=== PATIENT | male | born 1960 | race Caucasian/White ===

== ENCOUNTER 2016-10-18 07:45 | Emergency (ER) | payer OTHER ==
[~2016-10-18] VITALS: Ht 175.3 cm; Wt 93.5 kg
[~2016-10-18 07:45] MED LIST: IBUP-1050 PO; TRAM-10 PO
[2016-10-18 07:47] VITALS: TEMP 37; Ht 175.3 cm; Wt 93.5 kg
[2016-10-18] MEDS ORDERED: ACETAMINOPHEN 500 MG TAB PO STA (07:56)
[2016-10-18] MEDS ORDERED: PROPARACAINE HCL 0.5% OP SOLN 15 ML BTL OP STA (07:56)
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
--- NOTE | 2016-10-18 09:31 | DIAGNOSTIC IMAGING REPORT ---
ORBIT CT HISTORY: Pt swollen Rt eye TECHNIQUE: Multiaxial CT images of the orbits were performed reformatted in the coronal plane without contrast. COMPARISON STUDY: Head CT 01/07/2006. FINDINGS: Old, healed nasal bone fractures. No acute fractures identified. Multiple dental caries and periapical lucencies within the residual teeth. A 1.5 cm retention cyst within the left maxillary sinus. Mild mucosal thickening within the paranasal sinuses with partial opacification of the ethmoid air cells. The mastoid air cells are clear. The orbital floors and lamina papyracea are intact. The globes and retrobulbar fat are intact. The extraocular muscles and optic nerves are normal in caliber. Minimal right orbit preseptal soft tissue thickening. No radiopaque foreign bodies. Soft tissue prominence at the central adenoids remains stable since 2005 and is likely benign. IMPRESSION: 1 Minimal right orbit preseptal soft tissue thickening. 2. Mild chronic sinus disease as described above. 3. Extensive periodontal disease Electronically signed by: Guero Parr M.D. 10/18/2016 9:29 AM Dictated Date/Time: 10/18/2016 9:06 AM
[2016-10-18 09:50] VITALS: BP 133/100; PULSE 68; O2SAT 95
== END 2016-10-18 09:50 | disposition home or self-care (01) ==
LOC: C.EDB 07:46 → C.EDA 09:50
DX: S05.91XA Unspecified injury of right eye and orbit, initial encounter (principal); W22.8XXA Striking against or struck by other objects, initial encounter; J43.9 Emphysema, unspecified; F17.200 Nicotine dependence, unspecified, uncomplicated; Z87.81 Personal history of (healed) traumatic fracture; Z98.890 Other specified postprocedural states; Z91.09 Other allergy status, other than to drugs and biological substances

== ENCOUNTER 2017-05-06 18:24 | Emergency (ER) | payer OTHER ==
[~2017-05-06] VITALS: Ht 175.3 cm; Wt 96.4 kg
[2017-05-06 18:26] VITALS: TEMP 36.5; Ht 175.3 cm; Wt 96.4 kg
[2017-05-06] MEDS ORDERED: XYLOCAINE 1%/SOD BICARB 20 ML VIAL INFIL ONE (18:45)
[2017-05-06] MEDS ORDERED: DIPHTHERIA/TETANUS/PERTUSSIS 0.5 ML SYR/VIAL IM. ONE (18:45)
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
[2017-05-06] MEDS ORDERED: ACETAMINOPHEN 500 MG TAB PO STA (19:52)
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
[2017-05-06 20:28] VITALS: BP 152/72; PULSE 86; O2SAT 98
== END 2017-05-06 20:29 | disposition home or self-care (01) ==
LOC: C.EDB 18:25 → C.EDD 20:29
DX: S01.01XA Laceration without foreign body of scalp, initial encounter (principal); S09.90XA Unspecified injury of head, initial encounter; W22.8XXA Striking against or struck by other objects, initial encounter; Y93.55 Activity, bike riding; Y92.89 Other specified places as the place of occurrence of the external cause; Z23 Encounter for immunization; F17.200 Nicotine dependence, unspecified, uncomplicated; Z87.81 Personal history of (healed) traumatic fracture

== ENCOUNTER → 2017-05-08 | Outpatient (CLI) | payer OTHER ==
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
== END | disposition home or self-care (01) ==
LOC: C.CTS 16:56
PROVIDERS: ATTEND Nurse Practitioner Adult Health
DX: S42.002A Fracture of unspecified part of left clavicle, initial encounter for closed fracture (principal); S22.32XA Fracture of one rib, left side, initial encounter for closed fracture; R22.2 Localized swelling, mass and lump, trunk; S20.219A Contusion of unspecified front wall of thorax, initial encounter; V19.9XXA Pedal cyclist (driver) (passenger) injured in unspecified traffic accident, initial encounter

== ENCOUNTER 2017-05-14 12:23 | Emergency (ER) | payer OTHER ==
[~2017-05-14] VITALS: Ht 175.3 cm; Wt 98.1 kg
[2017-05-14 12:36] VITALS: TEMP 36.9; Ht 175.3 cm; Wt 98.1 kg
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
[2017-05-14 13:07] VITALS: BP 124/81; PULSE 88; O2SAT 99
== END 2017-05-14 13:07 | disposition home or self-care (01) ==
LOC: C.EDB 12:28 → C.EDD 13:07
DX: S01.01XD Laceration without foreign body of scalp, subsequent encounter (principal); X58.XXXD Exposure to other specified factors, subsequent encounter

== ENCOUNTER 2024-02-15 16:33 | Inpatient (IN) ==
--- NOTE | 2024-02-15 17:07 | Emergency Department Note ---
History of Present Illness General Chief complaint: Illness Time Seen by Provider: 02/15/24 16:37 History of Present Illness Provider complaint: Illness Maximum Pain Intensity: 5 63-year-old male presents emergency department for illness. Patient reports for the last week he has been having cough abdominal pain diarrhea. Patient reports loss of voice. He reports difficulty breathing. No chest pain. No fever. Home Medications Medication Instructions Recorded Confirmed Type aspirin 325 mg tablet 325 mg PO .EVERY 4 DAYS 06/20/21 02/15/24 History Allergies Allergy/AdvReac Type Severity Reaction Status Date / Time pollen extracts Allergy Intermediate SNEEZING Verified 09/24/23 13:59 codeine Allergy Unknown Verified 09/24/23 13:59 house dust Allergy Unknown Verified 09/24/23 13:59 Past Med/Surg History Problem List (Updated 02/15/24 @ 20:36 by Jonathan Urias MD) Pericardial effusion Pulmonary embolism Elevated LFTs Coagulopathy Shortness of breath Liver mass Perforated viscus Other skin changes Aortic stenosis ECHO 12/2020: Moderate to severe Murmur Leg skin lesion, right Tobacco use Hyperlipidemia Hyperglycemia Anemia Medical History Sinus congestion Empyema Rib fracture Clavicle fracture Surgical History S/P carpal tunnel release S/P tonsillectomy S/P hernia repair Status post repair of nerve H/O hernia repair Family History Son Asthma Mother Cancer Father Suicide Denies family history of Ovarian cancer Prostate cancer Myocardial infarction Breast cancer Colorectal cancer Social History Smoking Status: Former smoker Tobacco Type: Cigarettes Age Started Using Tobacco: 10; packs per day: 0.5; Second Hand Exposure: Yes; Hx Alcohol Use: Yes (socially ) Alcohol type: beer and wine Alcohol Intake Frequency: Monthly or Less Hx Substance Use: Yes Prescribed Medications: Marijuana Preferred Language: Faroese Communication Ability: Effective Visual Impairment: No Limitations Hearing Ability: Normal 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 Seatbelt Use: always Sunscreen Use: No Physical Exam Vital Signs Vital Signs - 24 hr 02/15/24 16:43 02/15/24 16:44 02/15/24 17:14 Temperature 36.5 C Temperature Source Oral Pulse Rate 100 H 98 H 94 H Pulse Rate [Apical] Respiratory Rate 24 24 Respiratory Effort / Characteristics Respiratory Depth Normal Blood Pressure 125/84 Blood Pressure [Left Arm] Blood Pressure Mean 97 Blood Pressure Mean [Left Arm] Pulse Oximetry 94 94 Oxygen Delivery Method Room Air Room Air Sepsis Recent Fever Within 48 Hours No Sepsis New/Unexplained Change in Mental Status N/A Sepsis Action Taken by Nursing No Action Required 02/15/24 18:06 02/15/24 19:56 Temperature Temperature Source Pulse Rate Pulse Rate [Apical] 92 H 100 H Respiratory Rate 16 18 Respiratory Effort / Characteristics Non-Labored Respiratory Depth Normal Blood Pressure Blood Pressure [Left Arm] 107/67 126/66 Blood Pressure Mean Blood Pressure Mean [Left Arm] 80 86 Pulse Oximetry 95 92 Oxygen Delivery Method Room Air Sepsis Recent Fever Within 48 Hours Sepsis New/Unexplained Change in Mental Status Sepsis Action Taken by Nursing Physical Exam HENT: Exam performed. - Head: Normocephalic and atraumatic. EYES: Conjunctivae and EOM are normal. Pupils are equal, round, and reactive to light. Right eye exhibits no discharge. Left eye exhibits no discharge. No scleral icterus. NECK: Normal range of motion. Neck supple. No JVD present. CV: Normal rate, regular rhythm, normal heart sounds and intact distal pulses. 3+ pitting edema of the bilateral lower extremities. Palpable radial pulses bue. PULM/CHEST: Inspiratory rales at the bases. ABD: The abdomen is soft. There is tenderness to palpation of the right lower quadrant and left lower quadrant. There is no rebound, no guarding NEURO: Motor and sensation grossly intact. Course Course 163: The patient was evaluated in room B2. A complete history and physical exam was performed Cardiac monitoring: An order was placed for continuous cardiac monitoring. The monitor shows a rate of 100 with sinus rhythm interpreted by me 1939: Vital signs stable. Labs show leukocytosis of 13. INR 1.8. D-dimer 2650. VBG within normal limits. Electrolytes within normal limits. Total bilirubin 4.5. AST 360 ALT 670 alkaline phosphatase 264. High-sensitivity troponin 127.4. BNP 1981. Urinalysis unremarkable. BioFire respiratory negative. Chest x-ray negative. CTA of the chest shows cardiomegaly with pericardial and right small pleural effusions. Equivocal right upper lobe pulmonary emboli. There is also a moderate amount of upper abdominal pneumoperitoneum compatible with perforated viscus on CT abdomen pelvis which may be secondary to perforated colonic diverticulosis possibly involving the splenic flexure. There is wall thickening of the lesser curvature of the distal gastric body with an adjacent heterogeneity 60 enhancing the left hepatic lobe mass bulging of the gastric perforation with hepatic abscess considered. Hepatic neoplasm could appear similarly. Dr. Hennessy general surgery was done in the emergency department evaluating another patient and he was kind enough to come down and review the images and will evaluate the patient at bedside. Zosyn ordered for the patient. 2014: Vital signs stable. Dr. Hennessy requests that the patient be admitted to the medicine service. He states he is placing orders and will be a consult for the patient. [facility] hospitalist team was notified and they will evaluate the patient for admission. Administered Medications Pantoprazole Sodium 40 mg/ (Syringe) 10 mls @ 5 mls/min IV BID RAFITA Stop: 03/16/24 20:59 Last Admin: 02/15/24 21:02 Dose: 5 mls/min Documented By: SRIDHAR Discontinued Medications Piperacillin Sod/Tazobactam Sod (Zosyn) 4.5 gm in 120 mls @ 240 mls/hr IV NOW ONE Stop: 02/15/24 20:08 Last Infusion: 02/15/24 20:30 Dose: Infused Documented By: Admin: 02/15/24 19:53 Dose: 240 mls/hr Documented By: SRIDHAR Ioversol (Optiray 320 125ml) 119 ml IV ONCE ONE Stop: 02/15/24 18:31 Last Admin: 02/15/24 18:30 Dose: 119 ml Documented By: AHSAN Critical Care Time Critical Care Time: Yes Total Critical Care Time: 64 I have personally spent greater than 64 minutes of critical care time in the direct management of this patient. This includes bedside care, interpretation of diagnostic studies, and testing, discussion with consultants, patient, and family members, and other required patient management activities. This 64 minutes is in excess of all separately billable procedures. Medical Decision Making Laboratory Data Attestation: I reviewed the patient's lab results. 02/15/24 17:08 02/15/24 18:20 Lab Results 02/15/24 02/15/24 02/15/24 Range/Units 17:08 18:20 18:23 WBC 13.01 H (4.8-10.8) K/ul RBC 5.55 (4.70-6.10) M/uL Hgb 16.4 (14.0-18.0) g/dl Hct 48.5 (42.0-52.0) % MCV 87.4 (80.0-100.0) fL MCH 29.5 (25.0-34.0) pg MCHC 33.8 (32.0-36.0) g/dL RDW Std Deviation 52.3 H (36.4-46.3) fL RDW Coeff of Kadeem 17.8 H (11.5-14.5) % Plt Count 241 (130-400) K/uL MPV 11.3 (9.4-12.4) fL Immature Gran % (Auto) 0.5 % Neut % (Auto) 83.9 % Lymph % (Auto) 9.0 % [place] % (Auto) 6.4 % Eos % (Auto) 0.0 % Baso % (Auto) 0.2 % Neut # (Auto) 10.92 H (1.40-6.50) K/uL Lymph # (Auto) 1.17 L (1.20-3.40) K/uL [place] # (Auto) 0.83 H (0.11-0.59) K/uL Eos # (Auto) 0.00 (0.00-0.50) K/uL Baso # (Auto) 0.03 (0.00-0.20) K/uL Immature Gran # (Auto) 0.06 (0.01-0.20) K/uL Absolute Nucleated RBC 0.06 (0.00-0.12) K/uL Nucleated RBC % (auto) 0.5 % PT 18.9 H (9.0-12.0) Seconds INR 1.8 H (0.9-1.1) APTT 27 (21-31) Seconds PTT Ratio 1.0 D-Dimer 2650 H* (0-500) ug/L FEU VBG pH Cancelled 7.38 VBG pCO2 Cancelled 49 VBG pO2 Cancelled 22 VBG HCO3 Cancelled 29 VBG O2 Saturation Cancelled < 60.0 VBG Base Excess Cancelled 3.0 Barometric Pressure Cancelled Sodium 132 L (136-145) mmol/L Potassium TNP 4.7 Chloride 96 L (98-107) mmol/L Carbon Dioxide 24 (21-32) mmol/L Anion Gap 12 H (3-11) BUN 50 H (6-23) mg/dl Creatinine 1.25 (0.6-1.4) mg/dl Est Cr Clr Drug Dosing 73.4 ml/min Est GFR ( Amer) 70.1 ml/min Est GFR (Non-Af Amer) 60.5 ml/min BUN/Creatinine Ratio 40.0 H (10-20) Glucose 102 H (70-99(Fasting)) mg/dl Lactate (0.4-2.0) mmol/L Calcium 8.8 (8.6-10.3) mg/dl Magnesium 2.5 H (1.7-2.4) mg/dl Total Bilirubin 4.5 H (0.2-1.0) mg/dl Direct Bilirubin TNP TNP AST TNP 360 H ALT 678 H (7-52) U/L Alkaline Phosphatase 264 H (34-104) U/L Troponin I High Sens 127.4 H* (0-20) pg/ml B-Natriuretic Peptide 1981 H (0-100) pg/ml Total Protein 6.7 (6.0-8.3) gm/dl Albumin 3.6 (3.4-5.0) gm/dl Lipase 10 L (11-82) U/L Urine Color Urine Appearance (Clear) Urine pH (4.5-7.5) Ur Specific High View (1.000-1.030) Urine Protein (Negative) Urine Glucose (UA) (Negative) Urine Ketones (Negative) Urine Blood (Negative) Urine Nitrite (Negative) Urine Bilirubin (Negative) Urine Urobilinogen (Negative) Ur Leukocyte Esterase (Negative) Urine WBC (Auto) (0-5) /hpf Urine RBC (Auto) (0-2) /hpf U Hyaline Cast (Auto) (0-2) /lpf U Epithel Cells (Auto) (0-2) /hpf Urine Bacteria (Auto) (None Seen) Adenovirus (PCR) Not Detected (NotDetected) B. pertussis DNA (PCR) Not Detected (NotDetected) B.parapertussis DNA PCR Not Detected (NotDetected) C. pneumoniae DNA (PCR) Not Detected (NotDetected) Coronavirus OC43 (PCR) Not Detected (NotDetected) Coronavirus HKU1 (PCR) Not Detected (NotDetected) Coronavirus 229E (PCR) Not Detected (NotDetected) SARS-CoV-2 (PCR) Not Detected (NotDetected) Coronavirus NL63 (PCR) Not Detected (NotDetected) Human Metapneumovir PCR Not Detected (NotDetected) Influenza Type A (PCR) Not Detected (NotDetected) Influenza Type B (PCR) Not Detected (NotDetected) M. pneumoniae (PCR) Not Detected (NotDetected) Parainfluenza 1 (PCR) Not Detected (NotDetected) Parainfluenza 2 (PCR) Not Detected (NotDetected) Parainfluenza 3 (PCR) Not Detected (NotDetected) Parainfluenza 4 (PCR) Not Detected (NotDetected) RSV (PCR) Not Detected (NotDetected) Entero/Rhino (PCR) Not Detected (NotDetected) 02/15/24 02/15/24 Range/Units 19:15 21:04 WBC (4.8-10.8) K/ul RBC (4.70-6.10) M/uL Hgb (14.0-18.0) g/dl Hct (42.0-52.0) % MCV (80.0-100.0) fL MCH (25.0-34.0) pg MCHC (32.0-36.0) g/dL RDW Std Deviation (36.4-46.3) fL RDW Coeff of Kadeem (11.5-14.5) % Plt Count (130-400) K/uL MPV (9.4-12.4) fL Immature Gran % (Auto) % Neut % (Auto) % Lymph % (Auto) % [place] % (Auto) % Eos % (Auto) % Baso % (Auto) % Neut # (Auto) (1.40-6.50) K/uL Lymph # (Auto) (1.20-3.40) K/uL [place] # (Auto) (0.11-0.59) K/uL Eos # (Auto) (0.00-0.50) K/uL Baso # (Auto) (0.00-0.20) K/uL Immature Gran # (Auto) (0.01-0.20) K/uL Absolute Nucleated RBC (0.00-0.12) K/uL Nucleated RBC % (auto) % PT (9.0-12.0) Seconds INR (0.9-1.1) APTT (21-31) Seconds PTT Ratio D-Dimer (0-500) ug/L FEU VBG pH VBG pCO2 VBG pO2 VBG HCO3 VBG O2 Saturation VBG Base Excess Barometric Pressure Sodium (136-145) mmol/L Potassium Chloride (98-107) mmol/L Carbon Dioxide (21-32) mmol/L Anion Gap (3-11) BUN (6-23) mg/dl Creatinine (0.6-1.4) mg/dl Est Cr Clr Drug Dosing ml/min Est GFR ( Amer) ml/min Est GFR (Non-Af Amer) ml/min BUN/Creatinine Ratio (10-20) Glucose (70-99(Fasting)) mg/dl Lactate 4.8 H* (0.4-2.0) mmol/L Calcium (8.6-10.3) mg/dl Magnesium (1.7-2.4) mg/dl Total Bilirubin (0.2-1.0) mg/dl Direct Bilirubin AST ALT (7-52) U/L Alkaline Phosphatase (34-104) U/L Troponin I High Sens (0-20) pg/ml B-Natriuretic Peptide (0-100) pg/ml Total Protein (6.0-8.3) gm/dl Albumin (3.4-5.0) gm/dl Lipase (11-82) U/L Urine Color Dark Yellow Urine Appearance Clear (Clear) Urine pH 5.0 (4.5-7.5) Ur Specific High View > 1.045 H (1.000-1.030) Urine Protein Trace H (Negative) Urine Glucose (UA) Negative (Negative) Urine Ketones Trace H (Negative) Urine Blood Negative (Negative) Urine Nitrite Negative (Negative) Urine Bilirubin 1+ H (Negative) Urine Urobilinogen Positive H (Negative) Ur Leukocyte Esterase Negative (Negative) Urine WBC (Auto) 0-5 (0-5) /hpf Urine RBC (Auto) 3-5 H (0-2) /hpf U Hyaline Cast (Auto) 3-5 H (0-2) /lpf U Epithel Cells (Auto) 0-2 (0-2) /hpf Urine Bacteria (Auto) None Seen (None Seen) Adenovirus (PCR) (NotDetected) B. pertussis DNA (PCR) (NotDetected) B.parapertussis DNA PCR (NotDetected) C. pneumoniae DNA (PCR) (NotDetected) Coronavirus OC43 (PCR) (NotDetected) Coronavirus HKU1 (PCR) (NotDetected) Coronavirus 229E (PCR) (NotDetected) SARS-CoV-2 (PCR) (NotDetected) Coronavirus NL63 (PCR) (NotDetected) Human Metapneumovir PCR (NotDetected) Influenza Type A (PCR) (NotDetected) Influenza Type B (PCR) (NotDetected) M. pneumoniae (PCR) (NotDetected) Parainfluenza 1 (PCR) (NotDetected) Parainfluenza 2 (PCR) (NotDetected) Parainfluenza 3 (PCR) (NotDetected) Parainfluenza 4 (PCR) (NotDetected) RSV (PCR) (NotDetected) Entero/Rhino (PCR) (NotDetected) Imaging Data Attestation: I personally reviewed and interpreted this imaging study as follows: My Impression: Chest x-ray negative. Airway clear. No pneumothorax. No consolidation. No cardiomegaly or cephalization.. No free air under the diaphragm. No fractures of the skeletal structures. Radiologist's Impression: Abdomen/Pelvis CT 02/15/24 16:51 CT angio chest PE protocol, CT abd pelvis IV con only CT DOSE: 2356.06 mGy.cm HISTORY: 63 years-old Male with ro pe. Acute chest and abdominal pain with shortness of breath TECHNIQUE: Multiple CTA images of the chest were obtained after the intravenous administration of 119 ml Optiray. Coronal and sagittal MIPS were obtained from the axial data set and were submitted for review. All measurements were obtained according to NASCET criteria. CT abdomen and pelvis with IV contrast only also obtained. A dose lowering technique was utilized adhering to the principles of ALARA. COMPARISON: Chest CT 05/08/2017 FINDINGS: CTA: Moderate cardiomegaly. Aortic and mitral annular calcifications. Pericardial effusion measures up to 9 mm posteriorly. No thoracic aortic aneurysm or dissection identified. Reflux of contrast into the IVC and hepatic veins. There is suboptimal evaluation of the pulmonary arterial tree secondary to contrast bolus timing and mixing artifact. The right upper lobe segmental and subsegmental branches are not well visualized. CT CHEST: Unremarkable thyroid. Nonspecific borderline enlarged mediastinal and hilar lymph nodes likely reactive. Trace left and small right pleural effusions. No pneumothorax. Moderate severe pulmonary emphysema with colitis. No suspicious pulmonary nodules or masses identified. Subsegmental groundglass and consolidative right basilar opacities. Diffuse body wall edema. Mild intralobular septal thickening. Unremarkable soft tissues. Healed chronic left mid clavicular fracture deformity. Chronic ununited sternal manubrial fracture. CT ABDOMEN AND PELVIS: Moderate amount of upper abdominal pneumoperitoneum. Unremarkable spleen, pancreas and adrenal glands. Heterogeneous appearance of the liver with increased enhancement of the capsule. Portal vein appears patent. There is a heterogeneously enhancing left hepatic lobe mass on image 86 series 6 measuring 4.0 x 4.5 cm bulging the capsule abutting the adjacent thickened lesser curvature of the distal gastric body, image 95 series 6. Unremarkable gallbladder. No hydronephrosis. There are a few scattered bilateral renal cysts. Prostatomegaly. Mild urinary bladder wall thickening may represent chronic outlet obstruction. Atherosclerosis of the aorta. Unremarkable IVC. Mild distal esophageal wall thickening with subcentimeter periesophageal lymph nodes. Trace ascites with body wall edema. There is irregularity of the splenic flexure which is decompressed. Diffuse colonic diverticulosis. The visualized appendix is noninflamed. No drainable fluid collections. No acute fracture. IMPRESSION: 1. Cardiomegaly with pericardial and small right pleural effusions. There are equivocal right upper lobe pulmonary emboli. Correlation with lower extremity Doppler recommended. 2. Moderate upper abdominal predominant pneumoperitoneum compatible with perforated viscus. Statistically, this may be secondary to perforated colonic diverticulosis possibly involving the splenic flexure. 3. Wall thickening of the lesser curvature of the distal gastric body with an adjacent heterogeneously enhancing left hepatic lobe mass bulging the capsule. A gastric perforation with hepatic abscess considered. A hepatic neoplasm could appear similarly. 4. Heterogeneity of the liver with enhancement of the hepatic capsule. Correlate with LFTs. 5. No bowel obstruction. Normal appendix. 6. Small volume of abdominopelvic ascites. 7. Additional findings as above. ACT 112: Negative or not required by law. The above report was generated using voice recognition software. It may contain grammatical, syntax or spelling errors. Electronically signed by: Ramírez Sparks M.D. 02/15/2024 7:24 PM Chest X-Ray 02/15/24 16:51 XR chest 1V portable HISTORY: 63 years-old Male abd acute chest and abdominal pain COMPARISON: 05/06/2017 TECHNIQUE: AP view of the chest FINDINGS: Cardiac silhouette is enlarged. Pulmonary vascular congestion. Healed chronic mid left clavicular fracture. Trace pleural effusions suggested with patchy right basilar predominant opacities. Right lung volume loss. No pneumothorax. IMPRESSION: 1. Cardiomegaly with pulmonary vascular congestion. 2. Small right pleural effusion with mild right basilar opacities and right lung volume loss. Findings may represent atelectasis versus pneumonia. ACT 112: Negative or not required by law. The above report was generated using voice recognition software. It may contain grammatical, syntax or spelling errors. Electronically signed by: Ramírez Sparks M.D. 02/15/2024 6:13 PM Chest CTA 02/15/24 18:06 CT angio chest PE protocol, CT abd pelvis IV con only CT DOSE: 2356.06 mGy.cm HISTORY: 63 years-old Male with ro pe. Acute chest and abdominal pain with shortness of breath TECHNIQUE: Multiple CTA images of the chest were obtained after the intravenous administration of 119 ml Optiray. Coronal and sagittal MIPS were obtained from the axial data set and were submitted for review. All measurements were obtained according to NASCET criteria. CT abdomen and pelvis with IV contrast only also obtained. A dose lowering technique was utilized adhering to the principles of ALARA. COMPARISON: Chest CT 05/08/2017 FINDINGS: CTA: Moderate cardiomegaly. Aortic and mitral annular calcifications. Pericardial effusion measures up to 9 mm posteriorly. No thoracic aortic aneurysm or dissection identified. Reflux of contrast into the IVC and hepatic veins. There is suboptimal evaluation of the pulmonary arterial tree secondary to contrast bolus timing and mixing artifact. The right upper lobe segmental and subsegmental branches are not well visualized. CT CHEST: Unremarkable thyroid. Nonspecific borderline enlarged mediastinal and hilar lymph nodes likely reactive. Trace left and small right pleural effusions. No pneumothorax. Moderate severe pulmonary emphysema with colitis. No suspicious pulmonary nodules or masses identified. Subsegmental groundglass and consolidative right basilar opacities. Diffuse body wall edema. Mild intralobular septal thickening. Unremarkable soft tissues. Healed chronic left mid clavicular fracture deformity. Chronic ununited sternal manubrial fracture. CT ABDOMEN AND PELVIS: Moderate amount of upper abdominal pneumoperitoneum. Unremarkable spleen, pancreas and adrenal glands. Heterogeneous appearance of the liver with increased enhancement of the capsule. Portal vein appears patent. There is a heterogeneously enhancing left hepatic lobe mass on image 86 series 6 measuring 4.0 x 4.5 cm bulging the capsule abutting the adjacent thickened lesser curvature of the distal gastric body, image 95 series 6. Unremarkable gallbladder. No hydronephrosis. There are a few scattered bilateral renal cysts. Prostatomegaly. Mild urinary bladder wall thickening may represent chronic outlet obstruction. Atherosclerosis of the aorta. Unremarkable IVC. Mild distal esophageal wall thickening with subcentimeter periesophageal lymph nodes. Trace ascites with body wall edema. There is irregularity of the splenic flexure which is decompressed. Diffuse colonic diverticulosis. The visualized appendix is noninflamed. No drainable fluid collections. No acute fracture. IMPRESSION: 1. Cardiomegaly with pericardial and small right pleural effusions. There are equivocal right upper lobe pulmonary emboli. Correlation with lower extremity Doppler recommended. 2. Moderate upper abdominal predominant pneumoperitoneum compatible with perforated viscus. Statistically, this may be secondary to perforated colonic diverticulosis possibly involving the splenic flexure. 3. Wall thickening of the lesser curvature of the distal gastric body with an adjacent heterogeneously enhancing left hepatic lobe mass bulging the capsule. A gastric perforation with hepatic abscess considered. A hepatic neoplasm could appear similarly. 4. Heterogeneity of the liver with enhancement of the hepatic capsule. Correlate with LFTs. 5. No bowel obstruction. Normal appendix. 6. Small volume of abdominopelvic ascites. 7. Additional findings as above. ACT 112: Negative or not required by law. The above report was generated using voice recognition software. It may contain grammatical, syntax or spelling errors. Electronically signed by: Ramírez Sparks M.D. 02/15/2024 7:24 PM ECG Data Attestation: I personally reviewed and interpreted this ECG as follows: Additional Comments: Sinus arrhythmia with rate of 97. GA QRS and QTc intervals within normal limits. No ST elevation or ST depression. [facility] Narrative 1637: The patient was evaluated in room B2. A complete history and physical exam was performed Cardiac monitoring: An order was placed for continuous cardiac monitoring. The monitor shows a rate of 100 with sinus rhythm interpreted by me 1939: Vital signs stable. Labs show leukocytosis of 13. INR 1.8. D-dimer 2650. VBG within normal limits. Electrolytes within normal limits. Total bilirubin 4.5. AST 360 ALT 670 alkaline phosphatase 264. High-sensitivity troponin 127.4. BNP 1981. Urinalysis unremarkable. BioFire respiratory negative. Chest x-ray negative. CTA of the chest shows cardiomegaly with pericardial and right small pleural effusions. Equivocal right upper lobe pulmonary emboli. There is also a moderate amount of upper abdominal pneumoperitoneum compatible with perforated viscus on CT abdomen pelvis which may be secondary to perforated colonic diverticulosis possibly involving the splenic flexure. There is wall thickening of the lesser curvature of the distal gastric body with an adjacent heterogeneity 60 enhancing the left hepatic lobe mass bulging of the gastric perforation with hepatic abscess considered. Hepatic neoplasm could appear similarly. Dr. Hennessy general surgery was done in the emergency department evaluating another patient and he was kind enough to come down and review the images and will evaluate the patient at bedside. Zosyn ordered for the patient. 2014: Vital signs stable. Dr. Hennessy requests that the patient be admitted to the medicine service. He states he is placing orders and will be a consult for the patient. [facility] [facility] hospitalist team was notified and they will evaluate the patient for admission. Impression & Plan Perforated viscus Discharge Plan Visit Data Chief Complaint: Illness ED Provider: Rio Sanchez Discharge Problem: Perforated viscus Patient Disposition: Admitted As Inpatient Forms Stand Alone Forms: My [facility] [employer] Prescriptions Prescriptions: No Action aspirin 325 mg tablet 325 mg PO .EVERY 4 DAYS Referrals Referrals: Pro,Ino Maurer MD [Primary Care Provider] -
[2024-02-15 17:28] LABS: Basophils # (auto) 0.03 K/uL (0.00-0.20); Basophils % (auto) 0.2 %; Hematocrit (blood only) 48.5 % (42.0-52.0); Hemoglobin 16.4 g/dl (14.0-18.0); Immature Granulocytes # (auto) 0.06 K/uL (0.01-0.20); Immature Granulocytes % (auto) 0.5 %; Lymphocytes # (auto) 1.17 K/uL (1.20-3.40); Mean Corpuscular Hemoglobin 29.5 pg (25.0-34.0); Mean Corpuscular Hgb Conc 33.8 g/dL (32.0-36.0); Mean Corpuscular Volume 87.4 fL (80.0-100.0); Mean Platelet Volume 11.3 fL (9.4-12.4); Monocytes # (auto) 0.83 K/uL (0.11-0.59); Monocytes % (auto) 6.4 %; Neutrophils # (auto) 10.92 K/uL (1.40-6.50); Neutrophils % (auto) 83.9 %; Nucleated RBC # (auto) 0.06 K/uL (0.00-0.12); Nucleated RBC % (auto) 0.5 %; Platelet Count 241 K/uL (130-400); RDW Coefficient of Variation 17.8 % (11.5-14.5); RDW Standard Deviation 52.3 fL (36.4-46.3); Red Blood Count 5.55 M/uL (4.70-6.10); White Blood Count 13.01 K/ul (4.8-10.8)
[2024-02-15 17:55] LABS: INR 1.8 (0.9-1.1); Partial Thromboplastin Time 27 Seconds (21-31); Prothrombin Time 18.9 Seconds (9.0-12.0)
[2024-02-15 18:00] LABS: D Dimer 2650 ug/L FEU (0-500)
[2024-02-15 18:07] LABS: Albumin Level 3.6 gm/dl (3.4-5.0); Alkaline Phosphatase 264 U/L (34-104); Anion Gap 12 (3-11); Bilirubin,Total 4.5 mg/dl (0.2-1.0); Blood Urea Nitrogen 50 mg/dl (6-23); Calcium 8.8 mg/dl (8.6-10.3); Carbon Dioxide 24 mmol/L (21-32); Chloride 96 mmol/L (98-107); Creatinine Clr Calc Pharmacy 73.4 ml/min; Est GFR (African American) 70.1 ml/min; Est GFR (Non-African American) 60.5 ml/min; Glucose 102 mg/dl (70-99(Fasting)); Lipase 10 U/L (11-82); Magnesium 2.5 mg/dl (1.7-2.4); Sodium 132 mmol/L (136-145); Total Protein 6.7 gm/dl (6.0-8.3); Troponin I High Sensitivity 127.4 pg/ml (0-20)
[2024-02-15 18:08] LABS: Adenovirus PCR Not Detected (NotDetected); Bordetella parapertussis PCR Not Detected (NotDetected); Bordetella pertussis PCR Not Detected (NotDetected); Chlamydia pneumoniae PCR Not Detected (NotDetected); Coronavirus 229E PCR Not Detected (NotDetected); Coronavirus CoV-2 (COVID19)PCR Not Detected (NotDetected); Coronavirus HKU1 PCR Not Detected (NotDetected); Coronavirus NL63 PCR Not Detected (NotDetected); Coronavirus OC43PCR Not Detected (NotDetected); Human Metapneumovirus PCR Not Detected (NotDetected); Influenza A PCR Not Detected (NotDetected); Influenza B PCR Not Detected (NotDetected); Mycoplasma pneumoniae PCR Not Detected (NotDetected); Parainfluenza Virus 1 PCR Not Detected (NotDetected); Parainfluenza Virus 2 PCR Not Detected (NotDetected); Parainfluenza Virus 3 PCR Not Detected (NotDetected); Parainfluenza Virus 4 PCR Not Detected (NotDetected); Respiratory Syncytial VirusPCR Not Detected (NotDetected); Rhinovirus/Enterovirus PCR Not Detected (NotDetected)
--- NOTE | 2024-02-15 18:14 | XRay Report ---
XR chest 1V portable HISTORY: 63 years-old Male abd acute chest and abdominal pain COMPARISON: 05/06/2017 TECHNIQUE: AP view of the chest FINDINGS: Cardiac silhouette is enlarged. Pulmonary vascular congestion. Healed chronic mid left clavicular fra cture. Trace pleural effusions suggested with patchy right basilar predominant opacities. Right lung volume loss. No pneumothorax. IMPRESSION: 1. Cardiomegaly with pulmonary vascular congestion. 2. Small right pleural effusion with mild right basilar opacities and right lung volume loss. Finding s may represent atelectasis versus pneumonia. ACT 112: Negative or not required by law. The above report was generated using voice recognition software. It may contain grammatical, syntax o r spelling errors. Electronically signed by: Ramírez Sparks M.D. 02/15/2024 6:13 PM
[2024-02-15 18:29] LABS: Alanine Aminotransferase 678 U/L (7-52)
[2024-02-15] MEDS: OPTIRAY 320 125ml IV ONE (18:30)
[2024-02-15 18:36] LABS: HCO3 VBG 29 mmol/L; Oxygen Saturation VBG < 60.0 %; PCO2 VBG 49 mmHg (38-50); PO2 VBG 22 mmHg; pH VBG 7.38 (7.36-7.41)
[2024-02-15 18:59] LABS: Aspartate Aminotransferase 360 U/L (13-39); Potassium 4.7 mmol/L (3.5-5.1)
--- NOTE | 2024-02-15 19:27 | CT Scan Report ---
CT angio chest PE protocol, CT abd pelvis IV con only CT DOSE: 2356.06 mGy.cm HISTORY: 63 years-old Male with ro pe. Acute chest and abdominal pain with shortness of breath TECHNIQUE: Multiple CTA images of the chest were obtained after the intravenous administration of 119 ml Optiray. Coronal and sagittal MIPS were obtained from the axial data set and were submitted for review. All measurements were obtained according to NASCET criteria. CT abdomen and pelvis with IV c ontrast only also obtained. A dose lowering technique was utilized adhering to the principles of JEFF Jeff. COMPARISON: Chest CT 05/08/2017 FINDINGS: CTA: Moderate cardiomegaly. Aortic and mitral annular calcifications. Pericardial effusion measures up to 9 mm posteriorly. No thoracic aortic aneurysm or dissection identified. Reflux of contrast into the I VC and hepatic veins. There is suboptimal evaluation of the pulmonary arterial tree secondary to cont rast bolus timing and mixing artifact. The right upper lobe segmental and subsegmental branches are n ot well visualized. CT CHEST: Unremarkable thyroid. Nonspecific borderline enlarged mediastinal and hilar lymph nodes likely reacti ve. Trace left and small right pleural effusions. No pneumothorax. Moderate severe pulmonary emphysem a with colitis. No suspicious pulmonary nodules or masses identified. Subsegmental groundglass and co nsolidative right basilar opacities. Diffuse body wall edema. Mild intralobular septal thickening. Un remarkable soft tissues. Healed chronic left mid clavicular fracture deformity. Chronic ununited ster nal manubrial fracture. CT ABDOMEN AND PELVIS: Moderate amount of upper abdominal pneumoperitoneum. Unremarkable spleen, pancreas and adrenal glands . Heterogeneous appearance of the liver with increased enhancement of the capsule. Portal vein appear s patent. There is a heterogeneously enhancing left hepatic lobe mass on image 86 series 6 measuring 4.0 x 4.5 cm bulging the capsule abutting the adjacent thickened lesser curvature of the distal gastr ic body, image 95 series 6. Unremarkable gallbladder. No hydronephrosis. There are a few scattered bilateral renal cysts. Prostatomegaly. Mild urinary blad concepción wall thickening may represent chronic outlet obstruction. Atherosclerosis of the aorta. Unremarka ble IVC. Mild distal esophageal wall thickening with subcentimeter periesophageal lymph nodes. Trace ascites with body wall edema. There is irregularity of the splenic flexure which is decompressed. Dif fuse colonic diverticulosis. The visualized appendix is noninflamed. No drainable fluid collections. No acute fracture. IMPRESSION: 1. Cardiomegaly with pericardial and small right pleural effusions. There are equivocal right upper l obe pulmonary emboli. Correlation with lower extremity Doppler recommended. 2. Moderate upper abdominal predominant pneumoperitoneum compatible with perforated viscus. Statistic ally, this may be secondary to perforated colonic diverticulosis possibly involving the splenic flexu re. 3. Wall thickening of the lesser curvature of the distal gastric body with an adjacent heterogeneousl y enhancing left hepatic lobe mass bulging the capsule. A gastric perforation with hepatic abscess co nsidered. A hepatic neoplasm could appear similarly. 4. Heterogeneity of the liver with enhancement of the hepatic capsule. Correlate with LFTs. 5. No bowel obstruction. Normal appendix. 6. Small volume of abdominopelvic ascites. 7. Additional findings as above. ACT 112: Negative or not required by law. The above report was generated using voice recognition software. It may contain grammatical, syntax o r spelling errors. Electronically signed by: Ramírez Sparks M.D. 02/15/2024 7:24 PM
[2024-02-15 19:37] LABS: Appearance Urine Clear (Clear); Bacteria Urine Automated None Seen (None Seen); Bilirubin Urine 1+ (Negative); Blood Urine Negative (Negative); Color Urine Dark Yellow; Epithelial Cell Urine Auto 0-2 /hpf (0-2); Glucose Urine UA Negative (Negative); Ketones Urine Trace (Negative); Leukocyte Esterase Urine Negative (Negative); Nitrite Urine Negative (Negative); Protein Urine Trace (Negative); Specific Gravity Urine > 1.045 (1.000-1.030); Urobilinogen Urine Positive (Negative); WBC Urine Automated 0-5 /hpf (0-5)
[2024-02-15] MEDS: PIPERACILLIN/TAZOBACTAM 4.5 GM/120 ML BAG IV ONE (19:53)
--- NOTE | 2024-02-15 20:03 | Surgery Consultation ---
Date of Consultation February 15, 2024 Assessment & Plan (1) Perforated viscus: Is unclear to me precisely what is going on. I did discuss with Dr. Sparks regarding the imaging tests. We will obtain a lower extremity Doppler and he feels that if this is negative he likely does not have pulmonary emboli and that may be motion artifact. I suspect the patient has a liver versus gastric issue whether it is a perforated ulcer versus malignancy versus other. His LFTs are all elevated and his bilirubin is 4.5 without good explanation. He also has a coagulopathy with an INR of 1.8 which is not easily explained. He does not have any peritoneal signs. His vitals have been stable along in fact he has not even required pain medication here in the emergency room. I want to admit him to the hospital and begin IV Zosyn as well as give him some vitamin K. Will also rehydrate him. Will also obtain lower extremity Dopplers to try and get her a better idea of the likelihood of pulmonary embolism. If his symptoms or exam worsen clinically I will probably be forced to perform a surgical exploration in the operating room. If he continues to stabilize or even improve I would consider an upper endoscopy early in the week. We will watch him closely with serial exams. (2) Liver mass: (3) Shortness of breath: (4) Coagulopathy: (5) Elevated LFTs: (6) Pulmonary embolism: History of Present Illness History of Present Illness 63-year-old male who presented to the emergency room today with complaint of generalized abdominal discomfort as well as shortness of breath. He states this began around noon today. He denies any nausea vomiting or weight loss. He denies any preceding similar episodes. Allergies Allergy/AdvReac Type Severity Reaction Status Date / Time pollen extracts Allergy Intermediate SNEEZING Verified 09/24/23 13:59 codeine Allergy Unknown Verified 09/24/23 13:59 house dust Allergy Unknown Verified 09/24/23 13:59 Home Medications Medication Instructions Recorded Confirmed Type aspirin 325 mg tablet 325 mg PO .EVERY 4 DAYS 06/20/21 02/15/24 History Patient History Medical History Sinus congestion Empyema Rib fracture Clavicle fracture Surgical History S/P carpal tunnel release S/P tonsillectomy S/P hernia repair Status post repair of nerve H/O hernia repair Family History Son Asthma Mother Cancer Father Suicide Denies family history of Ovarian cancer Prostate cancer Myocardial infarction Breast cancer Colorectal cancer Social History Smoking Status: Former smoker Tobacco Type: Cigarettes Age Started Using Tobacco: 10; packs per day: 0.5; Second Hand Exposure: Yes; Hx Alcohol Use: Yes (socially ) Alcohol type: beer and wine Alcohol Intake Frequency: Monthly or Less Hx Substance Use: Yes Prescribed Medications: Marijuana Preferred Language: Liberian Communication Ability: Effective Visual Impairment: No Limitations Hearing Ability: Normal Explosive Ordnance Disposal Manager Required: No marital status: Current Living Situation: Alone current occupational status: disabled Feels Safe at Home: Yes Childhood Exposure to Second-Hand Smoke: Yes caffeine: No Dental Care, Regularly: No Physical Activity Frequency: 1-2 Times per Week Physical Activity Frequency Comment: Rides bike occasionally. Seatbelt Use: always Sunscreen Use: No Physical Exam Constitutional: WD/WN, vitals as above Alert. No acute distress. Poor dentition. Eyes: PERRL, conjunctivae normal, anicteric sclerae EOM intact bilaterally ENMT: external ear and nose normal, oropharynx normal Ears: no hearing impairment Neck: trachea midline, no thyromegaly Respiratory: normal respiratory effort; no respiratory distress and does not use accessory muscles Cardiovascular: Rate/Rhythm: regular rate and regular rhythm Gastrointestinal (Abdomen): Soft. Surprisingly minimal tenderness. No guarding or peritoneal signs. Skin: no rashes, warm and dry Psychiatric: Orientation: alert, oriented x 3 and cooperative Results & Data Vital Signs (Past 12 Hours) Vital Signs Temp Pulse Pulse Resp BP BP Pulse Ox 02/15/24 19:56 100 H 18 126/66 92 02/15/24 18:06 92 H 16 107/67 95 02/15/24 17:14 94 H 24 94 02/15/24 16:44 98 H 02/15/24 16:43 36.5 C 100 H 24 125/84 94 O2 Del Method 02/15/24 19:56 02/15/24 18:06 Room Air 02/15/24 17:14 Room Air 02/15/24 16:44 02/15/24 16:43 Room Air PG Care Time/CCT Total # of Minutes Spent Total Time Spent with Patient: Total time spent is greater than 50% in coordination of care (as documented) at patient's floor/unit and/or counseling patient: Coding Level of Care Code 41878 IN/OBS CONSULT LVL 5,80M Diagnoses Perforated viscus R19.8 Liver mass R16.0 Shortness of breath R06.02 Coagulopathy D68.9 Elevated LFTs R79.89 Pulmonary embolism I26.99
--- NOTE | 2024-02-15 20:38 | History & Physical Report ---
Date of Service February 15, 2024 Assessment & Plan (1) Perforated viscus: Plan: Management per general surgery NPO. Agree with prophylactic antibiotics with Zosyn, blood cultures obtained after initial antibiotics given Generally appears hypervolemic therefore would avoid excessive fluid overnight and if he becomes short of breath he may need Lasix - low tolerance to discontinue IV fluids (will reduce rate to 80ml/hr) Burroughs catheter to accurately record urine output Low tolerance to call communication electronic technician for deterioration overnight and upgrade to ICU - increasing abdominal pain, worse labs or worse vital signs (2) Liver mass: Plan: AFP with AM labs Abscess vs. malignancy Management per general surgery (3) Pulmonary embolism: Plan: "equivocal right upper lobe pulmonary emboli" US venous Doppler to correlate, if no DVT no plans to treat for pulmonary emboli If DVT present start IV heparin standard without bolus (4) Pericardial effusion: Plan: TTE (5) Elevated LFTs: Plan: Suspect due to liver mass Continue to trend (6) Coagulopathy: Plan: Vitamin K 10mg IV now, repeat INR in AM (7) Aortic stenosis: Plan: Moderate-severe in 2021 TTE (8) Tobacco use: Plan: Quit 2 months ago Denies nicotine craving at this time Plan VTE Prophylaxis - deferred given need for surgical treatment and elevated INR Diet - NPO Disposition - admit to PCU Admission and Anticipated Discharge Date Admission Date: February 15, 2024 History of Present Illness Chief Complaint: Abdominal pain Primary Care Provider: Ino Motley MD Jd Welsh is a 63 year old male who presents to the ER with abdominal pain. He reports sudden onset abdominal pain, severity 8/10 starting today around midday. No prior known liver or stomach issues. No heartburn, nausea or vomiting. He denies any current pain - only pain on movement which is generalized. Diarrhea yesterday but no change in bowels today. No melena or hematochezia. No nausea or vomiting. He notes associated shortness of breath but no orthopnea or PND. No chest pain, palpitations. He does note increased leg swelling over the last few days. Decreased oral intake today. Of note he has significant vision loss at baseline out of his right eye which is dilated and non-reactive - he reports from trauma. With the patient's permission I tried contacting his daughter (Lucy) and left a voicemail but she did not cotton picker. Allergies Allergy/AdvReac Type Severity Reaction Status Date / Time pollen extracts Allergy Intermediate SNEEZING Verified 09/24/23 13:59 codeine Allergy Unknown Verified 09/24/23 13:59 house dust Allergy Unknown Verified 09/24/23 13:59 Home Medications Medication Instructions Recorded Confirmed Type aspirin 325 mg tablet 325 mg PO .EVERY 4 DAYS 06/20/21 02/15/24 History Past Med/Surg History Problem List (Updated 02/15/24 @ 20:36 by Jonathan Urias MD) Pericardial effusion Pulmonary embolism Elevated LFTs Coagulopathy Shortness of breath Liver mass Perforated viscus Other skin changes Aortic stenosis ECHO 12/2020: Moderate to severe Murmur Leg skin lesion, right Tobacco use Hyperlipidemia Hyperglycemia Anemia Medical History Sinus congestion Empyema Rib fracture Clavicle fracture Surgical History S/P carpal tunnel release S/P tonsillectomy S/P hernia repair Status post repair of nerve H/O hernia repair Family History Son Asthma Mother Cancer Father Suicide Denies family history of Ovarian cancer Prostate cancer Myocardial infarction Breast cancer Colorectal cancer Social History Smoking Status: Former smoker Tobacco Type: Cigarettes Age Started Using Tobacco: 10; packs per day: 0.5; Second Hand Exposure: Yes; Hx Alcohol Use: Yes (socially ) Alcohol type: beer and wine Alcohol Intake Frequency: Monthly or Less Hx Substance Use: Yes Prescribed Medications: Marijuana Preferred Language: Citizen Of [place] Communication Ability: Effective Visual Impairment: No Limitations Hearing Ability: Normal Palliative Care Coordinator Required: No marital status: Current Living Situation: Alone current occupational status: disabled Feels Safe at Home: Yes Childhood Exposure to Second-Hand Smoke: Yes caffeine: No Dental Care, Regularly: No Physical Activity Frequency: 1-2 Times per Week Physical Activity Frequency Comment: Rides bike occasionally. Seatbelt Use: always Sunscreen Use: No Review of Systems Review of Systems: All systems reviewed & are unremarkable except as noted in HPI & below Physical Exam Constitutional: well developed; + not well nourished and no acute distress Eyes: + no PERRL (dilated right eye which is n on-reactive, left eye reactive to light) ENMT: external ear and nose normal, oropharynx normal Mouth: oral mucous membranes not dry Respiratory: normal respiratory effort, lungs clear to auscultation Cardiovascular: Rate/Rhythm: regular rhythm and + tachycardic Heart Sounds: no murmur Extremities: normal capillary refill and + pedal edema (2+ b/l equal); no calf tenderness Gastrointestinal (Abdomen): Inspection/Auscultation: + abdomen distended Percussion/Palpation: abdomen soft; abdomen nontender, no guarding and abdomen not rigid Musculoskeletal: no cyanosis or clubbing, extremities motor strength 5/5 Skin: no rashes, warm and dry Neurologic: moves all extremities and awake; no focal motor deficits and not confused Psychiatric: A+Ox3, euthymic affect Genitourinary: no CVA tenderness Results & Data Results & Data Vital Signs (Past 12 Hours) Vital Signs Temp Pulse Pulse Resp BP BP Pulse Ox 02/15/24 19:56 100 H 18 126/66 92 02/15/24 18:06 92 H 16 107/67 95 02/15/24 17:14 94 H 24 94 02/15/24 16:44 98 H 02/15/24 16:43 36.5 C 100 H 24 125/84 94 O2 Del Method 02/15/24 19:56 02/15/24 18:06 Room Air 02/15/24 17:14 Room Air 02/15/24 16:44 02/15/24 16:43 Room Air Laboratory Results Abnormal lab results 02/15/24 02/15/24 02/15/24 Range/Units 17:08 18:20 19:15 WBC 13.01 H (4.8-10.8) K/ul RDW Std Deviation 52.3 H (36.4-46.3) fL RDW Coeff of Kadeem 17.8 H (11.5-14.5) % Neut # (Auto) 10.92 H (1.40-6.50) K/uL Lymph # (Auto) 1.17 L (1.20-3.40) K/uL Carter # (Auto) 0.83 H (0.11-0.59) K/uL PT 18.9 H (9.0-12.0) Seconds INR 1.8 H (0.9-1.1) D-Dimer 2650 H* (0-500) ug/L FEU Sodium 132 L (136-145) mmol/L Chloride 96 L (98-107) mmol/L Anion Gap 12 H (3-11) BUN 50 H (6-23) mg/dl BUN/Creatinine Ratio 40.0 H (10-20) Glucose 102 H (70-99(Fasting)) mg/dl Lactate (0.4-2.0) mmol/L Magnesium 2.5 H (1.7-2.4) mg/dl Total Bilirubin 4.5 H (0.2-1.0) mg/dl AST 360 H (13-39) U/L ALT 678 H (7-52) U/L Alkaline Phosphatase 264 H (34-104) U/L Troponin I High Sens 127.4 H* (0-20) pg/ml B-Natriuretic Peptide 1981 H (0-100) pg/ml Lipase 10 L (11-82) U/L Ur Specific [place] > 1.045 H (1.000-1.030) Urine Protein Trace H (Negative) Urine Ketones Trace H (Negative) Urine Bilirubin 1+ H (Negative) Urine Urobilinogen Positive H (Negative) Urine RBC (Auto) 3-5 H (0-2) /hpf U Hyaline Cast (Auto) 3-5 H (0-2) /lpf 02/15/24 Range/Units 21:04 WBC (4.8-10.8) K/ul RDW Std Deviation (36.4-46.3) fL RDW Coeff of Kadeem (11.5-14.5) % Neut # (Auto) (1.40-6.50) K/uL Lymph # (Auto) (1.20-3.40) K/uL Carter # (Auto) (0.11-0.59) K/uL PT (9.0-12.0) Seconds INR (0.9-1.1) D-Dimer (0-500) ug/L FEU Sodium (136-145) mmol/L Chloride (98-107) mmol/L Anion Gap (3-11) BUN (6-23) mg/dl BUN/Creatinine Ratio (10-20) Glucose (70-99(Fasting)) mg/dl Lactate 4.8 H* (0.4-2.0) mmol/L Magnesium (1.7-2.4) mg/dl Total Bilirubin (0.2-1.0) mg/dl AST (13-39) U/L ALT (7-52) U/L Alkaline Phosphatase (34-104) U/L Troponin I High Sens (0-20) pg/ml B-Natriuretic Peptide (0-100) pg/ml Lipase (11-82) U/L Ur Specific [place] (1.000-1.030) Urine Protein (Negative) Urine Ketones (Negative) Urine Bilirubin (Negative) Urine Urobilinogen (Negative) Urine RBC (Auto) (0-2) /hpf U Hyaline Cast (Auto) (0-2) /lpf Diagnostic Findings XR chest 1V portable HISTORY: 63 years-old Male abd acute chest and abdominal pain COMPARISON: 05/06/2017 TECHNIQUE: AP view of the chest FINDINGS: Cardiac silhouette is enlarged. Pulmonary vascular congestion. Healed chronic mid left clavicular fracture. Trace pleural effusions suggested with patchy right basilar predominant opacities. Right lung volume loss. No pneumothorax. IMPRESSION: 1. Cardiomegaly with pulmonary vascular congestion. 2. Small right pleural effusion with mild right basilar opacities and right lung volume loss. Findings may represent atelectasis versus pneumonia. CT angio chest PE protocol, CT abd pelvis IV con only CT DOSE: 2356.06 mGy.cm HISTORY: 63 years-old Male with ro pe. Acute chest and abdominal pain with shortness of breath TECHNIQUE: Multiple CTA images of the chest were obtained after the intravenous administration of 119 ml Optiray. Coronal and sagittal MIPS were obtained from the axial data set and were submitted for review. All measurements were obtained according to NASCET criteria. CT abdomen and pelvis with IV contrast only also obtained. A dose lowering technique was utilized adhering to the principles of ALARA. COMPARISON: Chest CT 05/08/2017 FINDINGS: CTA: Moderate cardiomegaly. Aortic and mitral annular calcifications. Pericardial effusion measures up to 9 mm posteriorly. No thoracic aortic aneurysm or dissection identified. Reflux of contrast into the IVC and hepatic veins. There is suboptimal evaluation of the pulmonary arterial tree secondary to contrast bolus timing and mixing artifact. The right upper lobe segmental and subsegmental branches are not well visualized. CT CHEST: Unremarkable thyroid. Nonspecific borderline enlarged mediastinal and hilar lymph nodes likely reactive. Trace left and small right pleural effusions. No pneumothorax. Moderate severe pulmonary emphysema with colitis. No suspicious pulmonary nodules or masses identified. Subsegmental groundglass and consol idative right basilar opacities. Diffuse body wall edema. Mild intralobular septal thickening. Unremarkable soft tissues. Healed chronic left mid clavicular fracture deformity. Chronic ununited sternal manubrial fracture. CT ABDOMEN AND PELVIS: Moderate amount of upper abdominal pneumoperitoneum. Unremarkable spleen, pancreas and adrenal glands. Heterogeneous appearance of the liver with increased enhancement of the capsule. Portal vein appears patent. There is a heterogeneously enhancing left hepatic lobe mass on image 86 series 6 measuring 4.0 x 4.5 cm bulging the capsule abutting the adjacent thickened lesser curvature of the distal gastric body, image 95 series 6. Unremarkable gallbladder. No hydronephrosis. There are a few scattered bilateral renal cysts. Prostatomegaly. Mild urinary bladder wall thickening may represent chronic outlet obstruction. Atherosclerosis of the aorta. Unremarkable IVC. Mild distal esophageal wall thickening with subcentimeter periesophageal lymph nodes. Trace ascites with body wall edema. There is irregularity of the splenic flexure which is decompressed. Diffuse colonic diverticulosis. The visualized appendix is noninflamed. No drainable fluid collections. No acute fracture. IMPRESSION: 1. Cardiomegaly with pericardial and small right pleural effusions. There are equivocal right upper lobe pulmonary emboli. Correlation with lower extremity Doppler recommended. 2. Moderate upper abdominal predominant pneumoperitoneum compatible with perforated viscus. Statistically, this may be secondary to perforated colonic diverticulosis possibly involving the splenic flexure. 3. Wall thickening of the lesser curvature of the distal gastric body with an adjacent heterogeneously enhancing left hepatic lobe mass bulging the capsule. A gastric perforation with hepatic abscess considered. A hepatic neoplasm could appear similarly. 4. Heterogeneity of the liver with enhancement of the hepatic capsule. Correlate with LFTs. 5. No bowel obstruction. Normal appendix. 6. Small volume of abdominopelvic ascites. 7. Additional findings as above. Medications Administered ER Medications Given: Zosyn 4.5g IV ECG Rate (beats per minute): 97 Rhythm: normal sinus Findings: + PAC Comparison ECG Date: from (May 06, 2017) Change: the following changes noted (PACs now present) Code Status & VTE Plan Code Status Full VTE Prophylaxis Plan VTE Prophylaxis will be ordered: No PG Care Time/CCT Total # of Minutes Spent Total Time Spent with Patient: Total time spent is greater than 50% in coordination of care (as documented) at patient's floor/unit and/or counseling patient: Coding Level of Care Code 07199 INT INP/OBS CARE 3/75MIN Diagnoses Perforated viscus R19.8 Liver mass R16.0 Pulmonary embolism I26.99 Pericardial effusion I31.39 Elevated LFTs R79.89 Coagulopathy D68.9 Aortic stenosis I35.0 Tobacco use Z72.0
[2024-02-15] MEDS: PANTOprazole 40 MG in SYRINGE 0 ML IV SCH (21:02)
[2024-02-15] MEDS: PHYTONADIONE 10 MG in DEXTROSE 5% 50 ML IV ONE (21:15)
[2024-02-15] MEDS: SODIUM CHLORIDE 0.9% 1,000 ML IV SCH (21:45)
[2024-02-15] MEDS ORDERED: ACETAMINOPHEN 1,000 MG/100 ML VIAL IV PRN (22:31)
--- NOTE | 2024-02-15 23:21 | Ultrasound Report ---
Exam(s): US VENOUS BILATERAL LOWER EXTREMITIES EXAM: US Duplex Bilateral Lower Extremities Veins CLINICAL HISTORY: Reason for exam: assess for DVT bilaterally. TECHNIQUE: Real-time duplex ultrasound scan of the bilateral lower extremity veins integrating B-mode two-dimensional vascular structure, Doppler spectral analysis, color flow Doppler imaging and compression. COMPARISON: No relevant prior studies available. FINDINGS: Right deep veins: Unremarkable. No DVT in the right common femoral, femoral, proximal deep femoral or popliteal veins. The veins demonstrate normal color flow, are normally compressible, with normal phasic flow and/or augmentation response. Right superficial veins: Unremarkable. No thrombus in the visualized right great saphenous vein. Left deep veins: Unremarkable. No DVT in the left common femoral, femoral, proximal deep femoral or popliteal veins. The veins demonstrate normal color flow, are normally compressible, with normal phasic flow and/or augmentation response. Left superficial veins: Unremarkable. No thrombus in the visualized left great saphenous vein. Soft tissues: Avascular hypoechoic collection in the proximal left lateral calf measuring 6.6 x 2.7 x 2.5 cm. IMPRESSION: 1. No evidence of acute DVT bilaterally. 2. Avascular hypoechoic collection in the proximal left lateral calf measuring 6.6 x 2.7 x 2.5 centimeters. This could represent a bursal fluid collection, abscess, or hematoma. Electronically signed by: Allan Crespo M.D. 02/15/24 23:20 PM
[2024-02-16 00:58] LABS: BUN Creatinine Ratio 37.5 (10-20); Calcium 8.5 mg/dl (8.6-10.3); Creatinine Clr Calc Pharmacy 71.5 ml/min; Est GFR (African American) 68.1 ml/min; Est GFR (Non-African American) 58.8 ml/min; Potassium 4.9 mmol/L (3.5-5.1)
[2024-02-16 01:17] LABS: Albumin Level 2.9 gm/dl (3.4-5.0); Bilirubin,Total 4.1 mg/dl (0.2-1.0); Globulin 2.9 gm/dl (2.5-4.0); Total Protein 5.8 gm/dl (6.0-8.3)
[2024-02-16 01:18] LABS: INR 1.8 (0.9-1.1); Prothrombin Time 18.7 Seconds (9.0-12.0)
[2024-02-16] MEDS: PIPERACILLIN/TAZOBACTAM 4.5 GM in DEXTROSE 5% MINI-B 100 ML IV SCH (02:07)
--- NOTE | 2024-02-16 05:41 | Surgery Progress Note ---
Date of Service February 16, 2024 Assessment & Plan (1) Perforated viscus: Plan: Patient has been admitted on the hospitalist service. Alpha-fetoprotein has been ordered with a.m. labs due to concern for liver mass with possible malignancy There is concern that patient has pericardial effusion as well as history of aortic stenosis and therefore an echocardiogram has been ordered which is pending From surgery perspective following has been recommended/implemented: It is not entirely clear what the patient's underlying pathology is. There is concern patient may have a liver mass (possible malignancy or other pathology) or a perforated ulcer Provide analgesics as needed Provide antiemetics as needed Maintain n.p.o. status Continue intravenous fluids Continue antibiotics in the form of Zosyn Continue proton pump inhibitor Check a.m. labs when available (patient was noted to have elevated LFTs as well as coagulopathy despite not being on anticoagulants). The patient did receive intravenous vitamin K secondary to the noted coagulopathy. There was concern that patient had pulmonary emboli on CT scan of the chest at time of admission, however the interpreting radiologist felt motion artifact could be at play on the study. The patient did have bilateral lower extremity venous Dopplers performed thereafter which did not demonstrate any DVTs. At the present time the patient does not appear to have peritoneal signs. Will continue close monitoring the patient and if he demonstrates worsening of his abdominal exam or signs of peritonitis surgical exploration may be required. If patient remains stable or demonstrates improvement consideration will be given to performing upper endoscopy early next week as above. very complex case. pt stating he is feeling better. still with abdominal tenderness but no peritonitis. Vit K has not moved his INR...will repeat dose. if needs surgery may need FFP. WBC increase to 17,000. afebrile. Lower extremity duplex neg for DVT. Cont zosyn/PPI. will d/w medicine. ECHO pending. pt has not received any pain medications. will allow some ice chips. will likely repeat CT scan tomorrow. will monitor very closely for any clinical change with a low threshold for surgical exploration. (2) Liver mass: (3) Shortness of breath: (4) Coagulopathy: (5) Elevated LFTs: (6) Pulmonary embolism: Admission and Anticipated Discharge Date Admission Date: February 15, 2024 Subjective Patient is currently resting comfortably in bed. He notes some minor abdominal pain to the left of his umbilicus but overall states that his abdomen feels better than what it did at time of admission. He denies any nausea or vomiting. He denies any shortness of breath. He denies any fevers, shakes, or chills Physical Exam Respiratory: Breath sounds are present bilaterally without wheezing or use of accessory muscles Cardiovascular: Rate/Rhythm: regular rate and regular rhythm Gastrointestinal (Abdomen): Abdomen is noted to be mildly distended. There is no rebound tenderness or guarding but patient did have pain with palpation which appear to be greatest just to the left of the umbilicus. Musculoskeletal: No calf tenderness Results & Data Vital Signs (Past 12 Hours) Vital Signs Temp Pulse Pulse Resp BP Pulse Ox O2 Del Method 02/16/24 02:34 37 C 95 H 20 118/69 95 Room Air 02/16/24 01:07 36.9 C 106 H 22 111/71 93 Room Air 02/15/24 22:31 37.2 C 105 H 22 112/78 93 Room Air 02/15/24 22:30 Room Air 02/15/24 20:31 96 H 02/15/24 19:56 100 H 18 126/66 92 02/15/24 18:06 92 H 16 107/67 95 Room Air PG Care Time/CCT Total # of Minutes Spent Total Time Spent with Patient: Total time spent is greater than 50% in coordination of care (as documented) at patient's floor/unit and/or counseling patient: Coding Level of Care Code 76406 SUB INP/OBS CARE 3/50MIN Diagnoses Perforated viscus R19.8 Liver mass R16.0 Shortness of breath R06.02 Coagulopathy D68.9 Elevated LFTs R79.89 Pulmonary embolism I26.99
[2024-02-16 06:27] LABS: Hemoglobin 15.8 g/dl (14.0-18.0); Mean Corpuscular Hemoglobin 29.2 pg (25.0-34.0); Mean Corpuscular Hgb Conc 33.6 g/dL (32.0-36.0); Mean Corpuscular Volume 86.9 fL (80.0-100.0); Mean Platelet Volume 11.2 fL (9.4-12.4); Nucleated RBC # (auto) 0.07 K/uL (0.00-0.12); Nucleated RBC % (auto) 0.4 %; Platelet Count 245 K/uL (130-400); RDW Coefficient of Variation 17.9 % (11.5-14.5); Red Blood Count 5.41 M/uL (4.70-6.10); White Blood Count 17.71 K/ul (4.8-10.8)
[2024-02-16 06:54] LABS: INR 1.8 (0.9-1.1); Partial Thromboplastin Ratio 1.2; Partial Thromboplastin Time 33 Seconds (21-31); Prothrombin Time 18.5 Seconds (9.0-12.0)
[2024-02-16 06:57] LABS: Basophils # (auto) 0.08 K/uL (0.00-0.20); Basophils % (auto) 0.5 %; Echinocytes 1+; Eosinophils # (auto) 0.15 K/uL (0.00-0.50); Eosinophils % (auto) 0.8 %; Immature Granulocytes # (auto) 0.07 K/uL (0.01-0.20); Immature Granulocytes % (auto) 0.4 %; Lymphocytes # (auto) 0.75 K/uL (1.20-3.40); Lymphocytes % (auto) 4.2 %; Monocytes # (auto) 0.53 K/uL (0.11-0.59); Neutrophils # (auto) 16.13 K/uL (1.40-6.50); Neutrophils % (auto) 91.1 %; Polychromasia 1+; Toxic Vacuolation 2+
[2024-02-16 07:05] LABS: Albumin Level 2.6 gm/dl (3.4-5.0); BUN Creatinine Ratio 36.9 (10-20); Bilirubin,Total 3.8 mg/dl (0.2-1.0); Calcium 8.1 mg/dl (8.6-10.3); Creatinine Clr Calc Pharmacy 70.5 ml/min; Est GFR (African American) 66.8 ml/min; Est GFR (Non-African American) 57.7 ml/min; Globulin 2.6 gm/dl (2.5-4.0); Magnesium 2.2 mg/dl (1.7-2.4); Phosphorus 4.2 mg/dl (2.5-4.9); Potassium 4.9 mmol/L (3.5-5.1); Total Protein 5.2 gm/dl (6.0-8.3); Troponin I High Sensitivity 221.7 pg/ml (0-20)
--- NOTE | 2024-02-16 07:41 | Hospitalist Progress Note ---
Date of Service February 16, 2024 Assessment & Plan (1) Perforated viscus: Plan: 63-year-old man with moderate to severe aortic stenosis admitted with sepsis (present on admission) due to perforated viscus, liver mass perforated viscous could be related to gastric perforation/ulcer with adjacent hepatic abscess, or potentially diverticulitis near the splenic flexure causing perforation with unrelated liver mass 4x4.5 cm left hepatic lobe liver mass could be abscess or hepatoma remains tachycardic with persistently elevated lactate, cool feet, marginal UOP, but has not been hypotensive, remains afebrile, WBC increased to 17K, lactate remains elevated 5.1-->4.1 Perioperative risk assessment - high risk surgical candidate currently, related primarily to liver dysfunction - coagulopathy, hypoalbuminemia, sepsis Today MELD-Na score is 24, by NSQIP calculator above 10% mortality risk, near 30% risk of major complication Question whether liver mass would be accessible for biopsy by IR/percutaneous or EUS/transgastric - not at this center general surgery consulting - discussed with Dr. Hennessy continue pip-tazo IV PPI Significant amount of anasarca but intravascularly dry - IV fluids - continue at modest rate with prn boluses and add IV albumin. 500 mL of 5% followed by 25g of 25% q8h working on transfer to tertiary care center (2) Liver mass: Plan: AFP pending Abscess vs. malignancy See above (3) Pulmonary embolism: Plan: "equivocal right upper lobe pulmonary emboli" US venous Doppler to correlate, if no DVT no plans to treat for pulmonary emboli If DVT present start IV heparin standard without bolus LE duplex negative for DVT 02/14. Noted fluid collection in prox left lateral calf 6.6x3 cm - no tenderness, erythema or palpable mass in this area on exam (4) Elevated LFTs: Plan: Bili 4.5-->3.8, mild-mod elevations of AST/ALT/AlkP improved, hypoalbuminemia, INR 1.8. Small volume ascites. Two years ago these labs were normal (no previous INRs) Unclear whether entirely an acute issue related to liver mass and sepsis, or whether underlying cirrhosis No evidence of hepatic encephalopathy currently -daily CMP and INR (5) Coagulopathy: Plan: Vitamin K 10mg IV given on admission INR unchanged at 1.8. PTT minimally elevated. Surgeon ordered repeat dose of vitamin K Related to liver dysfunction (6) Aortic stenosis: Plan: Moderate-severe in 2021, potentially has bicuspid valve based on past imaging, small pericardial effusion noted on CT TTE pending (7) RADHA (acute kidney injury): Plan: Related to sepsis, Previous Cr 0.8-1 though none recent. RADHA related to sepsis vs progression of CKD This admission 1.25-->1.3 Maintains marginal UOP, has childress currently -monitor Cr, avoid nephrotoxins -IVF/albumin as above Plan Mild HS troponin elevation related to myocardial demand ischemia no evidence of ACS, EKG without acute ischemic changes, no chest pain, elevated BNP Mild hyponatreamia - NA stable at 133 Tobacco use - quit 2 months ago VTE Prophylaxis - deferred given need for potential surgical/procedural treatment and elevated INR Diet - NPO x chips Disposition - currently PCU, high risk for clinical deterioration, low threshold to transfer to ICU, working on transfer Admission and Anticipated Discharge Date Admission Date: February 15, 2024 Subjective denies abdominal pain but was in severe L sided abdominal pain when rolled to side by nursing no confusion. had severe generalized abdominal pain 8/10 initially which brought him to the ED. has noticed dark urine for about a week and a half. has never been jaundiced. no history of alcohol abuse. no history of liver disease. had L chest empyema but that was years ago. Physical Exam Physical Exam: PHYSICAL EXAMINATION Last 24h vital signs reviewed, see documentation in flowsheet General: ill appearing HEENT: Normocephalic, atraumatic, pupils round and equal, sclerae anicteric, no conjunctival injection, moist mucus membranes Lungs: increased respiratory effort. Clear to auscultation bilaterally. No RRW Heart: Regular rate and rhythm, systolic crescendo/decrescendo murmur. No JVD Abdomen: Soft, distended, not really tender but some peritoneal signs present. Bowel sounds present. Extremities: Warm, dry, well-perfused. anasarca with bilateral LE and thigh edema, abdominal wall edema extends above umbilicus. LE are warm until the feet which are cool with some mottling. Neuro: Alert and oriented x 4, face symmetric, moves 4 extremities well, no asterixis Psych: Normal affect and behavior Results & Data Results & Data Vital Signs (Past 12 Hours) Vital Signs Temp Pulse Pulse Resp BP Pulse Ox O2 Del Method 02/16/24 02:34 37 C 95 H 20 118/69 95 Room Air 02/16/24 01:07 36.9 C 106 H 22 111/71 93 Room Air 02/15/24 22:31 37.2 C 105 H 22 112/78 93 Room Air 02/15/24 22:30 Room Air 02/15/24 20:31 96 H 02/15/24 19:56 100 H 18 126/66 92 PG Care Time/CCT Total # of Minutes Spent Total Time Spent with Patient: Total time spent is greater than 50% in coordination of care (as documented) at patient's floor/unit and/or counseling patient: Coding Level of Care Code 65642 SUB INP/OBS CARE 350MIN Diagnoses Perforated viscus R19.8 Liver mass R16.0 Pulmonary embolism I26.99 Elevated LFTs R79.89 Coagulopathy D68.9 Aortic stenosis I35.0 RADHA (acute kidney injury) N17.9
[2024-02-16] MEDS: PHYTONADIONE 10 MG in DEXTROSE 5% 50 ML IV ONE (09:42)
[2024-02-16] MEDS: ALBUMIN 5% 250 ML IV ONE (10:02)
--- NOTE | 2024-02-16 13:56 | Discharge Summary ---
Date of Service February 16, 2024 Admission HPI Per Admitting Provider Jd Welsh is a 63 year old male who presents to the ER with abdominal pain. He reports sudden onset abdominal pain, severity 8/10 starting today around midday. No prior known liver or stomach issues. No heartburn, nausea or vomiting. He denies any current pain - only pain on movement which is generalized. Diarrhea yesterday but no change in bowels today. No melena or hematochezia. No nausea or vomiting. He notes associated shortness of breath but no orthopnea or PND. No chest pain, palpitations. He does note increased leg swelling over the last few days. Decreased oral intake today. Of note he has significant vision loss at baseline out of his right eye which is dilated and non-reactive - he reports from trauma. With the patient's permission I tried contacting his daughter (Lucy) and left a voicemail but she did not picker / packer. Principal Diagnosis Sepsis due to perforated viscous Discharge Exam PHYSICAL EXAMINATION Last 24h vital signs reviewed, see documentation in flowsheet General: ill appearing HEENT: Normocephalic, atraumatic, pupils round and equal, sclerae anicteric, no conjunctival injection, moist mucus membranes Lungs: increased respiratory effort. Clear to auscultation bilaterally. No RRW Heart: Regular rate and rhythm, systolic crescendo/decrescendo murmur. No JVD Abdomen: Soft, distended, not really tender but some peritoneal signs present. Bowel sounds present. Extremities: Warm, dry, well-perfused. anasarca with bilateral LE and thigh edema, abdominal wall edema extends above umbilicus. LE are warm until the feet which are cool with some mottling. Neuro: Alert and oriented x 4, face symmetric, moves 4 extremities well, no asterixis Psych: Normal affect and behavior Discharge Data Allergies Allergy/AdvReac Type Severity Reaction Status Date / Time pollen extracts Allergy Intermediate SNEEZING Verified 09/24/23 13:59 codeine Allergy Unknown Verified 09/24/23 13:59 house dust Allergy Unknown Verified 09/24/23 13:59 Consultations 02/15/24 20:08 Consult General Surgery Stat ED Decision to Admit Stat Ordered Studies 02/15/24 16:51 CT abd pelvis IV con only Stat 02/15/24 18:06 CT angio chest PE protocol Stat 02/15/24 20:18 US leg [US venous doppler LE BI] Stat Abdomen/Pelvis CT 02/15/24 16:51 CT angio chest PE protocol, CT abd pelvis IV con only CT DOSE: 2356.06 mGy.cm HISTORY: 63 years-old Male with ro pe. Acute chest and abdominal pain with shortness of breath TECHNIQUE: Multiple CTA images of the chest were obtained after the intravenous administration of 119 ml Optiray. Coronal and sagittal MIPS were obtained from the axial data set and were submitted for review. All measurements were obtain ed according to NASCET criteria. CT abdomen and pelvis with IV contrast only also obtained. A dose lowering technique was utilized adhering to the principles of ALARA. COMPARISON: Chest CT 05/08/2017 FINDINGS: CTA: Moderate cardiomegaly. Aortic and mitral annular calcifications. Pericardial effusion measures up to 9 mm posteriorly. No thoracic aortic aneurysm or dissection identified. Reflux of contrast into the IVC and hepatic veins. There is suboptimal evaluation of the pulmonary arterial tree secondary to contrast bolus timing and mixing artifact. The right upper lobe segmental and s ubsegmental branches are not well visualized. CT CHEST: Unremarkable thyroid. Nonspecific borderline enlarged mediastinal and hilar lymph nodes likely reactive. Trace left and small right pleural effusions. No pneumothorax. Moderate severe pulmonary emphysema with colitis. No suspicious pulmonary nodules or masses identified. Subsegmental groundglass and consolidative right basilar opacities. Diffuse body wall edema. Mild intralobular septal thickening. Unremarkable soft tissues. Healed chronic left mid clavicular fracture deformity. Chronic ununited sternal manubrial fracture. CT ABDOMEN AND PELVIS: Moderate amount of upper abdominal pneumoperitoneum. Unremarkable spleen, pancreas and adrenal glands. Heterogeneous appearance of the liver with increased enhancement of the capsule. Portal vein appears patent. There is a heterogeneously enhancing left hepatic lobe mass on image 86 series 6 measuring 4.0 x 4.5 cm bulging the capsule abutting the adjacent thickened lesser curvature of the distal gastric body, image 95 series 6. Unremarkable gallbladder. No hydronephrosis. There are a few scattered bilateral renal cysts. Prostatomegaly. Mild urinary bladder wall thickening may represent chronic outlet obstruction. Atherosclerosis of the aorta. Unremarkable IVC. Mild distal esophageal wall thickening with subcentimeter periesophageal lymph nodes. Trace ascites with body wall edema. There is irregularity of the splenic flexure which is decompressed. Diffuse colonic diverticulosis. The visualized appendix is noninflamed. No drainable fluid collections. No acute fracture. IMPRESSION: 1. Cardiomegaly with pericardial and small right pleural effusions. There are equivocal right upper lobe pulmonary emboli. Correlation with lower extremity Doppler recommended. 2. Moderate upper abdominal predominant pneumoperitoneum compatible with perforated viscus. Statistically, this may be secondary to perforated colonic diverticulosis possibly involving the splenic flexure. 3. Wall thickening of the lesser curvature of the distal gastric body with an adjacent heterogeneously enhancing left hepatic lobe mass bulging the capsule. A gastric perforation with hepatic abscess considered. A hepatic neoplasm could appear similarly. 4. Heterogeneity of the liver with enhancement of the hepatic capsule. Correlate with LFTs. 5. No bowel obstruction. Normal appendix. 6. Small volume of abdominopelvic ascites. 7. Additional findings as above. ACT 112: Negative or not required by law. The above report was generated using voice recognition software. It may contain grammatical, syntax or spelling errors. Electronically signed by: Ramírez Sparks M.D. 02/15/2024 7:24 PM Chest X-Ray 02/15/24 16:51 XR chest 1V portable HISTORY: 63 years-old Male abd acute chest and abdominal pain COMPARISON: 05/06/2017 TECHNIQUE: AP view of the chest FINDINGS: Cardiac silhouette is enlarged. Pulmonary vascular congestion. Healed chronic mid left clavicular fracture. Trace pleural effusions suggested with patchy right basilar predominant opacities. Right lung volume loss. No pneumothorax. IMPRESSION: 1. Cardiomegaly with pulmonary vascular congestion. 2. Small right pleural effusion with mild right basilar opacities and right lung volume loss. Findings may represent atelectasis versus pneumonia. ACT 112: Negative or not required by law. The above report was generated using voice recognition software. It may contain grammatical, syntax or spelling errors. Electronically signed by: Ramírez Sparks M.D. 02/15/2024 6:13 PM Chest CTA 02/15/24 18:06 CT angio chest PE protocol, CT abd pelvis IV con only CT DOSE: 2356.06 mGy.cm HISTORY: 63 years-old Male with ro pe. Acute chest and abdominal pain with shortness of breath TECHNIQUE: Multiple CTA images of the chest were obtained after the intravenous administration of 119 ml Optiray. Coronal and sagittal MIPS were obtained from the axial data set and were submitted for review. All measurements were obtained according to NASCET criteria. CT abdomen and pelvis with IV contrast only also obtained. A dose lowering technique was utilized adhering to the principles of ALARA. COMPARISON: Chest CT 05/08/2017 FINDINGS: CTA: Moderate cardiomegaly. Aortic and mitral annular calcifications. Pericardial ef fusion measures up to 9 mm posteriorly. No thoracic aortic aneurysm or dissection identified. Reflux of contrast into the IVC and hepatic veins. There is suboptimal evaluation of the pulmonary arterial tree secondary to contrast bolus timing and mixing artifact. The right upper lobe segmental and subsegmental branches are not well visualized. CT CHEST: Unremarkable thyroid. Nonspecific borderline enlarged mediastinal and hilar lymph nodes likely reactive. Trace left and small right pleural effusions. No pneumothorax. Moderate severe pulmonary emphysema with colitis. No suspicious pulmonary nodules or masses identified. Subsegmental groundglass and consolidative right basilar opacities. Diffuse body wall edema. Mild intralobular septal thickening. Unremarkable soft tissues. Healed chronic left mid clavicular fracture deformity. Chronic ununited sternal manubrial fracture. CT ABDOMEN AND PELVIS: Moderate amount of upper abdominal pneumoperitoneum. Unremarkable spleen, pancreas and adrenal glands. Heterogeneous appearance of the liver with increased enhancement of the capsule. Portal vein appears patent. There is a heterogeneously enhancing left hepatic lobe mass on image 86 series 6 measuring 4.0 x 4.5 cm bulging the capsule abutting the adjacent thickened lesser curvature of the distal gastric body, image 95 series 6. Unremarkable gallbladder. No hydronephrosis. There are a few scattered bilateral renal cysts. Prostatomegaly. Mild urinary bladder wall thickening may represent chronic outlet obstruction. Atherosclerosis of the aorta. Unremarkable IVC. Mild distal esophageal wall thickening with subcentimeter periesophageal lymph nodes. Trace ascites with body wall edema. There is irregularity of the splenic flexure which is decompressed. Diffuse colonic diverticulosis. The visualized appendix is noninflamed. No drainable fluid collections. No acute fracture. IMPRESSION: 1. Cardiomegaly with pericardial and small right pleural effusions. There are equivocal right upper lobe pulmonary emboli. Correlation with lower extremity Doppler recommended. 2. Moderate upper abdominal predominant pneumoperitoneum compatible with perforated viscus. Statistically, this may be secondary to perforated colonic diverticulosis possibly involving the splenic flexure. 3. Wall thickening of the lesser curvature of the distal gastric body with an adjacent heterogeneously enhancing left hepatic lobe mass bulging the capsule. A gastric perforation with hepatic abscess considered. A hepatic neoplasm could appear similarly. 4. Heterogeneity of the liver with enhancement of the hepatic capsule. Correlate with LFTs. 5. No bowel obstruction. Normal appendix. 6. Small volume of abdominopelvic ascites. 7. Additional findings as above. ACT 112: Negative or not required by law. The above report was generated using voice recognition software. It may contain grammatical, syntax or spelling errors. Electronically signed by: Ramírez Sparks M.D. 02/15/2024 7:24 PM Venous Doppler Study 02/15/24 20:18 Exam(s): US VENOUS BILATERAL LOWER EXTREMITIES EXAM: US Duplex Bilateral Lower Extremities Veins CLINICAL HISTORY: Reason for exam: assess for DVT bilaterally. TECHNIQUE: Real-time duplex ultrasound scan of the bilateral lower extremity veins integrating B-mode two-dimensional vascular structure, Doppler spectral analysis, color flow Doppler imaging and compression. COMPARISON: No relevant prior studies available. FINDINGS: Right deep veins: Unremarkable. No DVT in the right common femoral, femoral, proximal deep femoral or popliteal veins. The veins demonstrate normal color flow, are normally compressible, with normal phasic flow and/or augmentation response. Right superficial veins: Unremarkable. No thrombus in the visualized right great saphenous vein. Left deep veins: Unremarkable. No DVT in the left common femoral, femoral, proximal deep femoral or popliteal veins. The veins demonstrate normal color flow, are normally compressible, with normal phasic flow and/or augmentation response. Left superficial veins: Unremarkable. No thrombus in the visualized left great saphenous vein. Soft tissues: Avascular hypoechoic collection in the proximal left lateral calf measuring 6.6 x 2.7 x 2.5 cm. IMPRESSION: 1. No evidence of acute DVT bilaterally. 2. Avascular hypoechoic collection in the proximal left lateral calf measuring 6.6 x 2.7 x 2.5 centimeters. This could represent a bursal fluid collection, abscess, or hematoma. Electronically signed by: Allan Crespo M.D. 02/15/24 23:20 PM Hospital Course (1) Perforated viscus: 63-year-old man with moderate to severe aortic stenosis admitted with sepsis (present on admission) due to perforated viscus, liver mass perforated viscous could be related to gastric perforation/ulcer with adjacent hepatic abscess, or potentially diverticulitis near the splenic flexure causing perforation with unrelated liver mass 4x4.5 cm left hepatic lobe liver mass could be abscess or hepatoma remains tachycardic with persistently elevated lactate, cool feet, marginal UOP, but has not been hypotensive, remains afebrile, WBC increased to 17K, lactate remains elevated 5.1-->4.1 Perioperative risk assessment - high risk surgical candidate currently, related primarily to liver dysfunction - coagulopathy, hypoalbuminemia, sepsis Today MELD-Na score is 24 Question whether liver mass would be accessible for biopsy by IR/percutaneous or EUS/transgastric - not at this center general surgery consulted - discussed with Dr. Hennessy continue pip-tazo IV PPI Significant amount of anasarca but intravascularly dry / underresuscitated - IV fluids - continue at modest rate with prn boluses and add IV albumin. 500 mL of 5% followed by 25g of 25% q8h Transferring to SICU at [facility] I updated his daughter Lucy by phone (2) Liver mass: AFP pending Abscess vs. malignancy See above (3) Pulmonary embolism: "equivocal right upper lobe pulmonary emboli" "There is suboptimal evaluation of the pulmonary arterial tree secondary to contrast bolus timing and mixing artifact. The right upper lobe segmental and subsegmental branches are not well visualized." US venous Doppler to correlate, if no DVT no plans to treat for pulmonary emboli LE duplex negative for DVT 02/14. Based on clinical presentation, PE unlikely Noted fluid collection in prox left lateral calf 6.6x3 cm on LE duplex - no tenderness, erythema or palpable mass in this area on exam. Seems likely bursal fluid collection. (4) Elevated LFTs: Hepatic dysfunction Bili 4.5-->3.8, mild-mod elevations of AST/ALT/AlkP improved, hypoalbuminemia, INR 1.8. Small volume ascites. Two years ago these labs were normal (no previous INRs) Unclear whether entirely an acute issue related to liver mass and sepsis, or whether underlying cirrhosis No evidence of hepatic encephalopathy currently -monitor CMP and INR, mental status (5) Coagulopathy: Vitamin K 10mg IV given on admission and Surgeon ordered repeat dose of vitamin K given on 02/15. INR unchanged at 1.8. PTT minimally elevated. D-dimer elevated. Probably related to liver dysfunction vs early DIC (6) Aortic stenosis: Moderate-severe in 2021, potentially has bicuspid valve based on past imaging, small pericardial effusion noted on CT TTE pending - images taken but not read yet (7) RADHA (acute kidney injury): Related to sepsis, Previous Cr 0.8-1 though none recent. RADHA related to sepsis vs progression of CKD This admission 1.25-->1.3 Maintains marginal UOP, has childress currently -monitor Cr, avoid nephrotoxins -IVF/albumin as above Plan Mild HS troponin elevation related to myocardial demand ischemia no evidence of ACS, EKG without acute ischemic changes, no chest pain, elevated BNP Mild hyponatreamia - NA stable at 133 Moderately severe COPD based on CT chest images, but does not have clincal history of lung disease Tobacco use - quit 2 months ago VTE Prophylaxis - SCDs, INR elevated Diet - NPO Disposition - currently PCU, high risk for clinical deterioration, critical care transport or airlift to SICU at [facility] Total Time Total Time Spent Total Time Spent (In Minutes): I personally spent: 75 minutes today on clinical care activities including: reviewing chart notes and vital signs reviewing labs reviewing studies discussion with media consultant(s) discussion with transfer center, accepting physician examining and counseling the patient counseling the patient's family writing orders documentation Discharge Plan Discharge Items Reason For Visit: ABDOMINAL PERFORATION, LIVER MASS Follow-up/Referrals: Ino Motley MD [Primary Care Provider] - Medications and DC Order Prescriptions: No Action aspirin 325 mg tablet 325 mg PO .EVERY 4 DAYS Admission Data Admit Date/Time: 02/15/24 20:33 Attending Provider: Shea Green Admit Provider: Jonathan Urias Primary Care Provider: Ino Motley Other Providers: Chris Hennessy; Arian Carl Coding Level of Care Code 89529 INP/OBS DISCH >30 MIN Diagnoses Perforated viscus R19.8 Liver mass R16.0 Pulmonary embolism I26.99 Elevated LFTs R79.89 Coagulopathy D68.9 Aortic stenosis I35.0 RADHA (acute kidney injury) N17.9
--- NOTE | 2024-02-16 14:35 | XCELERA ---
[id number] \\[email or web address]\[id number]
[2024-02-16] MEDS ORDERED: LACTATED RINGER'S 1,000 ML IV SCH (14:45)
--- NOTE | 2024-02-16 14:45 | Electrocardiogram Report ---
Test Reason : Blood Pressure : / mmHG Vent. Rate : 097 BPM Atrial Rate : 097 BPM P-R Int : 154 ms QRS Dur : 090 ms QT Int : 384 ms P-R-T Axes : 072 047 055 degrees QTc Int : 487 ms Sinus rhythm with Premature atrial complexes Prolonged QT Abnormal ECG When compared with ECG of 06-MAY-2017 20:08, Premature atrial complexes are now Present Confirmed by Ino Reese ([id number]) on 02/16/2024 2:45:12 PM Referred By: REFERRED SELF Confirmed By:Ino Reese
[2024-02-16 15:04] LABS: Base Excess VBG -1.5 mEq/L; HCO3 VBG 23 mmol/L; Oxygen Saturation VBG 92.3 %; PCO2 VBG 37 mmHg (38-50); PO2 VBG 66 mmHg
[2024-02-16 15:11] LABS: Hematocrit (blood only) 47.4 % (42.0-52.0); Hemoglobin 15.7 g/dl (14.0-18.0); Mean Corpuscular Hemoglobin 28.6 pg (25.0-34.0); Mean Corpuscular Hgb Conc 33.1 g/dL (32.0-36.0); Mean Corpuscular Volume 86.3 fL (80.0-100.0); Mean Platelet Volume 10.8 fL (9.4-12.4); Nucleated RBC # (auto) 0.06 K/uL (0.00-0.12); Nucleated RBC % (auto) 0.3 %; Platelet Count 242 K/uL (130-400); RDW Coefficient of Variation 17.7 % (11.5-14.5); RDW Standard Deviation 52.3 fL (36.4-46.3); Red Blood Count 5.49 M/uL (4.70-6.10); White Blood Count 17.35 K/ul (4.8-10.8)
[2024-02-16] MEDS: LACTATED RINGER'S 3,000 ML IV ONE (15:12)
[2024-02-16 15:26] LABS: Albumin Globulin Ratio 1.1 (0.9-2); Albumin Level 2.9 gm/dl (3.4-5.0); Bilirubin,Total 4.2 mg/dl (0.2-1.0); Calcium 8.3 mg/dl (8.6-10.3); Creatinine Clr Calc Pharmacy 57.3 ml/min; Est GFR (Non-African American) 44.9 ml/min; Globulin 2.7 gm/dl (2.5-4.0); Potassium 4.7 mmol/L (3.5-5.1); Total Protein 5.6 gm/dl (6.0-8.3)
[2024-02-16] MEDS ORDERED: ALBUMIN 25% 25 GM/100 ML VIAL IV SCH (17:00)
== END 2024-02-16 16:28 | disposition short-term general hospital (02) | DRG 871 ==
LOC: ED 16:33 → 2S 20:33 → SUATTDRO 20:33 → 2S 22:36